=== PATIENT | female | born 1955 | race Two or more races ===

== ENCOUNTER → 2017-09-05 | Outpatient (CLI) | payer OTHER ==
[~2017-09-05] MED LIST: ERGOCALCIFEROL PO; LOSARTAN POTAS100 MG; LOSARTAN POTAS100 MG PO; OMEPRAZOLE20 M1 PO; SIMVASTATIN40 MG; SIMVASTATIN40 MG PO; SINGULAIR10 MG; SINGULAIR10 MG PO; SYNTHROID50 MCG; SYNTHROID50 MCG PO; ZOLOFT50 MG; ZOLOFT50 MG PO
== END | disposition home or self-care (01) ==
LOC: PPHC 09:53
DX: Z00.8 Encounter for other general examination (principal)

== ENCOUNTER 2018-04-28 08:49 | Outpatient (CLI) | payer OTHER | END 2018-04-28 09:27 | disposition home or self-care (01) | LOC: RAD 08:49 | DX: J20.8 Acute bronchitis due to other specified organisms (principal); J44.1 Chronic obstructive pulmonary disease with (acute) exacerbation; J45.20 Mild intermittent asthma, uncomplicated; I10 Essential (primary) hypertension; E66.09 Other obesity due to excess calories; Z68.32 Body mass index [BMI] 32.0-32.9, adult; E55.9 Vitamin D deficiency, unspecified; M05.09 Felty's syndrome, multiple sites; M94.0 Chondrocostal junction syndrome [Tietze]; M35.00 Sjogren syndrome, unspecified; F33.41 Major depressive disorder, recurrent, in partial remission ==